=== PATIENT | female | born 1955 | race Caucasian/White ===

== ENCOUNTER 2017-07-08 21:02 | Observation (INO) | payer OTHER ==
[~2017-07-08] VITALS: Ht 162.6 cm; Wt 81.6 kg
[~2017-07-08 21:02] MED LIST: ALPRAZOLAM1 M2 PO; COLACE100 M1 PO; ELIQUIS2.5 M1 PO; HYDROCODON-ACE1 EAC3 PO; PERCOCET 5-3251 EACH PO; PREMARIN0.625 M1 PO
[2017-07-08 21:44] LABS: ABSOLUTE BASOPHIL COUNT 0 /CUMM (0.0-0.2); ABSOLUTE EOSINOPHIL COUNT 0.1 /CUMM (0.0-0.7); ABSOLUTE GRANULOCYTE CT 7.7 /CUMM (1.4-6.5); ABSOLUTE LYMPH COUNT 1.1 /CUMM (1.2-3.4); ABSOLUTE MONOCYTE COUNT 0.7 /CUMM (0.10-0.60); BASOPHIL % 0.3 % (0.0-2.0); EOSINOPHIL % 0.6 % (0-5); GRANULOCYTE % 80.2 % (42.2-75.2); HEMATOCRIT 44.1 % (37-47); MEAN CORPUSCULAR HGB 32.3 PG (27.0-31.0); MEAN CORPUSCULAR HGB CONC 33.6 G/DL (33.0-37.0); MEAN CORPUSCULAR VOLUME 96.3 FL (81.0-99.0); MEAN PLATELET VOLUME 8.6 FL (7.4-10.4); PLATELET COUNT 324 /CUMM (130-400); RBC DISTRIBUTION WIDTH 15.2 % (11.5-14.5); RED BLOOD CELL CT 4.58 /CUMM (4.20-5.40); WHITE BLOOD CELL COUNT 9.6 /CUMM (4.8-10.8)
--- NOTE | 2017-07-08 22:25 | ED GI/GU/ABDOMINAL COMPLAINT ---
See Addendum History of Present Illness General Chief Complaint: Abdominal Pain/Flank Pain Stated Complaint: "SWOLLEN ABD/CRAMPING" PER PT Source: patient, family, old records Exam Limitations: no limitations Vital Signs & Intake/Output Vital Signs & Intake/Output Vital Signs Date Time Temp Pulse Resp B/P B/P Pulse O2 O2 Flow FiO2 Mean Ox Delivery Rate 07/08 2120 97.8 65 16 156/94 96 Room Air ED Intake and Output 07/09 0000 05 1200 Intake Total 1100 Output Total Balance 1100 Intake, IV 1100 Patient 180 lb Weight Weight Reported by Patient Measurement Method Allergies Coded Allergies: No Known Allergies (12/29/16) Reconcile Medications Alprazolam 1 MG TABLET 1 TAB PO BID ANXIETY (Reported) Apixaban (Eliquis) 2.5 MG TABLET 1 TAB PO BID ANTICOAGULATION Docusate Sodium (Colace) 100 MG CAPSULE 1 CAP PO BID CONSITPATION DISCONTINUE USE IF YOU DEVELOP LOOSE STOOL OR DIARRHEA Estrogenic Subst Conj (Premarin) 0.625 MG TABLET 1 TAB PO DAILY HORMONE ( Reported) Oxycodone HCl/Acetaminophen (Percocet 5-325 MG Tablet) 5 MG-325 MG TABLET 1-2 TAB PO Q4-6H PRN PAIN Triage Note: PT WOKE THIS AM WITH GENERALIZED ABD PAIN DESCRIBED CRAMPING. NO N/V. STATES FEELS BLOATED. TRIED PEPTO BISMOL, STOOL SOFTENER AND ENEMA AT HOME, HAD SMALL BM. Triage Nurses Notes Reviewed? yes LMP (ages 10-50): post menopausal, hysterectomy ? n Is pt currently ? No Onset: Morning Duration: hour(s):, constant, continues in ED Timing: recent history Quality/Severity: aching, moderate, severe Location: generalized abdomen Radiation: no radiation Activities at Onset: rest Prior Abdominal Problems: none Past Sexual History: Unobtainable at this time Modifying Factors: Worsens With: eating. Associated Symptoms: abdominal pain, loss of appetite, nausea/vomiting HPI: 1 day prior to admission patient complains of abdominal distention anorexia nausea and generalized pain described as aching constant nonradiating. She tried Pepto-Bismol fleets enema stool softener without change in symptoms. She denies fever chills vomiting diarrhea chest pain cough shortness breath headache dysuria rash bleeding. Past History Travel History Traveled to [place] past 21 day No Medical History Any Pertinent Medical History? 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 No Review of Systems Review of Systems Constitutional: Reports: no symptoms. EENTM: Reports: no symptoms. Respiratory: Reports: no symptoms. Cardiovascular: Reports: no symptoms. GI: Reports: see HPI, abdominal pain, bloating, distention, nausea. Genitourinary: Reports: no symptoms. Musculoskeletal: Reports: no symptoms. Skin: Reports: no symptoms. Neurological/Psychological: Reports: no symptoms. Hematologic/Endocrine: Reports: no symptoms. Immunologic/Allergic: Reports: no symptoms. All Other Systems: Reviewed and Negative Physical Exam Physical Exam General Appearance: well developed/nourished, alert, awake, anxious, moderate distress, obese Head: atraumatic, normal appearance Eyes: Bilateral: normal appearance, PERRL, EOMI, normal inspection. Ears, Nose, Throat, Mouth: hearing grossly normal, moist mucous membrane Neck: normal inspection, supple, full range of motion, normal alignment Respiratory: normal breath sounds, chest non-tender, no respiratory distress, quiet respiration, lungs clear Cardiovascular: regular rate/rhythm, normal peripheral pulses, norml femoral pulses equa Peripheral Pulses: 4+ carotid (R), 4+ carotid (L) Gastrointestinal: normal bowel sounds, soft, non-tender, no organomegaly, distention Back: normal inspection, normal range of motion, no vertebral tenderness Extremities: normal range of motion, no ligament instability Neurologic/Psych: no motor/sensory deficits, awake, alert, oriented x 3, normal mood/affect, 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 No Sepsis Present: No Sepsis Focused Exam Completed? No Progress Differential Diagnosis: appendicitis, biliary colic, cholecystitis, diverticulitis, gastritis Plan of Care: Orders Procedure Date/time Status Place in observation 07/09 0025 Active CULTURE,URINE 07/08 2348 Active EKG 07/08 2328 Active BLOOD CULTURE 07/08 2317 Active URINALYSIS 07/08 2214 Active LIPASE 07/08 2122 Complete COMPREHENSIVE METABOLIC PANEL 07/08 2122 Complete CBC WITHOUT DIFFERENTIAL 07/08 2122 Complete AMYLASE 07/08 2122 Complete Laboratory Tests 07/08/172344: Urine Color Pending, Urine Clarity Pending, Urine pH Pending, Ur Specific [place] Pending, Urine Protein Pending, Urine Ketones Pending, Urine Nitrite Pending, Urine Bilirubin Pending, Urine Urobilinogen Pending, Ur Leukocyte Esterase Pending, Ur Microscopic SEDIMENT EXAMINED, Urine RBC Pending, Urine Hemoglobin Pending, Urine Glucose Pending 07/08/172128: Anion Gap 11, Estimated GFR > 60, BUN/Creatinine Ratio 11.4, Glucose 115 H, Calcium 9.5, Total Bilirubin 0.7, AST 15, ALT 14, Alkaline Phosphatase 90, Total Protein 7.5, Albumin 4.4, Globulin 3.1, Albumin/Globulin Ratio 1.4, Amylase 44, Lipase 22 L, CBC w Diff NO MAN DIFF REQ, RBC 4.58, MCV 96.3, MCH 32.3 H, MCHC 33.6, RDW 15.2 H, MPV 8.6, Gran % 80.2 H, Lymphocytes % 11.9 L, Monocytes % 7.0, Eosinophils % 0.6, Basophils % 0.3, Absolute Granulocytes 7.7 H, Absolute Lymphocytes 1.1 L, Absolute Monocytes 0.7 H, Absolute Eosinophils 0.1, Absolute Basophils 0 Microbiology 07/08 2344 URINE ROUT: Urine Culture - RECD 07/08 2334 BLOOD: Blood Culture - RECD 07/08 2314 BLOOD: Blood Culture - RECD Diagnostic Imaging: Viewed by Me: CT Scan. Discussed w/RAD: CT Scan. Radiology Impression: Abnormal appearance of the gallbladder. The gallbladder is distended with cholelithiasis. Stone seen at the gallbladder neck. Adjacent inflammation. These findings are suspicious for acute cholecystitis. Initial ED EKG: none Departure Departure Time of Disposition: 2315 Disposition: STILL A PATIENT Condition: Stable Clinical Impression Primary Impression: Cholecystitis, acute with cholelithiasis Referrals: Katherin IRAHETA,Itzel Maurice (PCP/Family) Departure Forms: Customer Survey General Discharge Information Observation Note Spoke With: Malachi IRAHETA,Luis Soriano Physician Advisor Notified: TYSON BRITT DO Place Patient In: Non-ED OBS Care Area Rationale for Observation: My rational for observation is as follows IV antibiotics IV analgesia and IV antiemetics IV fluids and by mouth surgery evaluation continuing care discharge planning..
--- NOTE | 2017-07-08 23:11 | CT SCAN REPORT ---
EXAMINATION: CT ABDOMEN AND PELVIS WITH CONTRAST CLINICAL INFORMATION: Nausea. Abdominal pain. Bloating. COMPARISON: None TECHNIQUE: Multidetector volumetric imaging was performed of the abdomen and pelvis following IV administration of 90 mL of Optiray 320 intravenous contrast. Sagittal and coronal reformatted images were obtained on the technologist's workstation. DLP: 528 mGy-cm FINDINGS: LUNG BASES: The visualized lung bases are unremarkable. LIVER, GALLBLADDER, AND BILIARY TREE: The liver is normal in size, shape, and attenuation. No focal hepatic lesion or biliary ductal dilatation is present. The gallbladder is distended. Multiple gallstones are seen within the gallbladder lumen, with a 1.3 cm calculus in the region of the gallbladder neck. Gallbladder wall thickening with pericholecystic inflammation noted. PANCREAS: Unremarkable. SPLEEN: Unremarkable. ADRENAL GLANDS: Unremarkable. KIDNEYS AND URETERS: The kidneys are normal in size, shape, and attenuation. No hydronephrosis, hydroureter, or calculi seen. No perinephric stranding. BLADDER: Unremarkable. GASTROINTESTINAL TRACT: The stomach is unremarkable. The small bowel is normal in caliber. There is no obstruction. Fecalization of the distal ileum suggests slow transit. Normal appendix. No colonic wall thickening or inflammatory change. Sigmoid diverticulosis without diverticulitis. No free air or free fluid. ABDOMINAL WALL: No significant hernia is appreciated. LYMPH NODES: Normal. VASCULAR: Normal caliber aorta with mild atherosclerotic calcifications. PELVIC VISCERA: The uterus is not seen. No adnexal mass. OSSEOUS STRUCTURES: Total right hip arthroplasty in place. Mild degenerative changes of the left hip. Mild degenerative changes in the spine. No acute or suspicious osseous abnormality. IMPRESSION: Abnormal appearance of the gallbladder. The gallbladder is distended with cholelithiasis. Stone seen at the gallbladder neck. Adjacent inflammation. These findings are suspicious for acute cholecystitis.
--- NOTE | 2017-07-09 00:53 | History & Physical Pre-Op ---
See Addendum General Information and HPI History of Present Illness: This is a 61 year-old female with a history of anxiety who presents with a sudden onset of abdominal pain that woke her from sleep at 5:00 this morning. She described the pain as constant and crampy and diffuse in nature. She thought her pain was due to constipation and took bepto bismol, colace and a fleet enema. She states she last ate a BLT last night and had a milkshake and toast this morning. She reports associated nausea and bloating. Denies vomiting, fever , chills, chest pain, shortness of breath, difficulty breathing or urinary changes. Patient reports a history of open heart surgery 52 year ago due to a hole in her heart that was corrected and has not required cardiac follow up. In the ER, she had a CT scan which revealed acute cholecystitis. Currently, she reports significant improvement in her pain with Toradol. 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 EENTM: Reports: no symptoms. Respiratory: Reports: no symptoms. Cardiovascular: Reports: no symptoms. GI: Reports: see HPI. Genitourinary: Reports: no symptoms. Musculoskeletal: Reports: no symptoms. Skin: Reports: no symptoms. Neurological/Psychological: Reports: no symptoms. Hematologic/Endocrine: Reports: no symptoms. Immunologic/Allergic: Reports: no symptoms. All Other Systems: Reviewed and Negative Exam & Diagnostic Data Last 24 Hrs of Vital Signs/I&O Vital Signs Date Time Temp Pulse Resp B/P B/P Pulse O2 O2 Flow FiO2 Mean Ox Delivery Rate 07/09 2119 97.8 65 16 156/94 96 Room Air Intake & Output 07/09 0800 07/09 0000 07/08 1600 Intake Total 1100 Output Total Balance 1100 Intake, IV 1100 Patient 180 lb Weight Weight Reported by Patient Measurement Method Physical Exam: General: Resting comfortably in bed awake an alert in nad Cardiac: S1S2 noted, well healed midline chest incision Lungs: Fair inspiratory effort, CTAB Abdomen: Soft, obese with striae noted, bs present, mild distenstion, tender to deep palpation in RUQ no rebound or guarding noted, negative murphys Extremities: no edema or calf tenderness B/L Last 24 Hrs of Labs/Simon: Laboratory Tests 07/08/172344: Urinalysis LIGHT H, Urine Color STRAW, Urine Clarity HAZY H, Urine pH 6.0, Ur Specific [place] 1.010, Urine Protein NEG, Urine Ketones NEG, Urine Nitrite NEG, Urine Bilirubin NEG, Urine Urobilinogen 0.2, Ur Leukocyte Esterase NEG, Ur Microscopic SEDIMENT EXAMINED, Urine RBC 1-3, Urine WBC RARE, Ur Epithelial Cells FEW, Urine Mucus FEW, Urine Hemoglobin SMALL H, Urine Glucose NEG 07/08/172128: Anion Gap 11, Estimated GFR > 60, BUN/Creatinine Ratio 11.4, Glucose 115 H, Calcium 9.5, Total Bilirubin 0.7, AST 15, ALT 14, Alkaline Phosphatase 90, Total Protein 7.5, Albumin 4.4, Globulin 3.1, Albumin/Globulin Ratio 1.4, Amylase 44, Lipase 22 L, CBC w Diff NO MAN DIFF REQ, RBC 4.58, MCV 96.3, MCH 32.3 H, MCHC 33.6, RDW 15.2 H, MPV 8.6, Gran % 80.2 H, Lymphocytes % 11.9 L, Monocytes % 7.0, Eosinophils % 0.6, Basophils % 0.3, Absolute Granulocytes 7.7 H, Absolute Lymphocytes 1.1 L, Absolute Monocytes 0.7 H, Absolute Eosinophils 0.1, Absolute Basophils 0 Microbiology 07/08 2344 URINE ROUT: Urine Culture - RECD 07/08 2335 BLOOD: Blood Culture - RECD 07/08 2314 BLOOD: Blood Culture - RECD Diagnostic Data Other Results SERVICE DATE: 07/08/17 EXAM TYPE: CAT - CT ABD & PELVIS W IV CONTRAST EXAMINATION: CT ABDOMEN AND PELVIS WITH CONTRAST CLINICAL INFORMATION: Nausea. Abdominal pain. Bloating. COMPARISON: None TECHNIQUE: Multidetector volumetric imaging was performed of the abdomen and pelvis following IV administration of 90 mL of Optiray 320 intravenous contrast. Sagittal and coronal reformatted images were obtained on the technologist's workstation. DLP: 528 mGy-cm FINDINGS: LUNG BASES: The visualized lung bases are unremarkable. LIVER, GALLBLADDER, AND BILIARY TREE: The liver is normal in size, shape, and attenuation. No focal hepatic lesion or biliary ductal dilatation is present. The gallbladder is distended. Multiple gallstones are seen within the gallbladder lumen, with a 1.3 cm calculus in the region of the gallbladder neck. Gallbladder wall thickening with pericholecystic inflammation noted. PANCREAS: Unremarkable. SPLEEN: Unremarkable. ADRENAL GLANDS: Unremarkable. KIDNEYS AND URETERS: The kidneys are normal in size, shape, and attenuation. No hydronephrosis, hydroureter, or calculi seen. No perinephric stranding. BLADDER: Unremarkable. GASTROINTESTINAL TRACT: The stomach is unremarkable. The small bowel is normal in caliber. There is no obstruction. Fecalization of the distal ileum suggests slow transit. Normal appendix. No colonic wall thickening or inflammatory change. Sigmoid diverticulosis without diverticulitis. No free air or free fluid. ABDOMINAL WALL: No significant hernia is appreciated. LYMPH NODES: Normal. VASCULAR: Normal caliber aorta with mild atherosclerotic calcifications. PELVIC VISCERA: The uterus is not seen. No adnexal mass. OSSEOUS STRUCTURES: Total right hip arthroplasty in place. Mild degenerative changes of the left hip. Mild degenerative changes in the spine. No acute or suspicious osseous abnormality. IMPRESSION: Abnormal appearance of the gallbladder. The gallbladder is distended with cholelithiasis. Stone seen at the gallbladder neck. Adjacent inflammation. These findings are suspicious for acute cholecystitis. Assessment/Plan Assessment/Plan: This is a 61 year-old female smoker with acute cholecystitis, cholelithiasis who requires surgical intervention Keep NPO on IVF Cont IV Unaysn 3 g q6 IV analgesics/antiemetics prn Nicotine patch prn Home meds ordered DVT ppx - hsq, alps, ambulate Proceed to OR tomorrow for lap evelio Place in observation Discussed with Dr. Ly who is in agreement As Ranked By This Provider Problem List: 1. Cholecystitis, acute with cholelithiasis
--- NOTE | 2017-07-09 00:57 | Patient Discharge Instructions ---
Discharge Instructions General Discharge Information You were seen/treated for: Acute cholecystitis, cholelithiasis You had these procedures: LAPAROSCOPIC CHOLECYSTECTOMY (07/09/17) Watch for these problems: Increased pain, fever > 101.3, chills, nausea, vomiting, redness, swelling, drainage No bath, but you may shower: Yes Other wound care: Keep incisions clean and dry, remove dressing in 2 days Special Instructions: No heavy lifting or strenous activity x 4 weeks Diet Continue normal diet: No Recommended Diet: Low Fat Activity Full Activity/No Limits: No Activity Self Limited: Yes Pounds, do NOT lift more than: 10 Acute Coronary Syndrome Inclusion Criteria At DC or during hospital stay patient has or had the following: ACS DIAGNOSIS No Discharge Core Measures Meds if any: Prescribed or Continued at Discharge Meds if any: NOT Prescribed or Continued at Discharge Congestive Heart Failure Inclusion Criteria At DC or during hospital stay patient has or had the following: CHF DIAGNOSIS No Discharge Core Measures Meds if any: Prescribed or Continued at Discharge Meds if any: NOT Prescribed or Continued at Discharge Cerebrovascular accident Inclusion Criteria At DC or during hospital stay patient has or had the following: CVA/TIA Diagnosis No Discharge Core Measures Meds if any: Prescribed or Continued at Discharge Meds if any: NOT Prescribed or Continued at Discharge Venous thromboembolism Inclusion Criteria VTE Diagnosis No VTE Type NONE VTE Confirmed by (Test) NONE Discharge Core Measures - Per Current guidelines, there needs to be overlap - treatment for the first 5 days of Warfarin therapy. - If discharged on Warfarin prior to 5 days of - overlap therapy, the patient will need to be - assessed for post discharge needs including - *Post discharge parental anticoagulation - *Warfarin and/or parental anticoagulation education - *Follow up date to check INR post discharge At least 5 days overlap therapy as Inpatient No Meds if any: Prescribed or Continued at Discharge Note: Overlap Therapy is Warfarin and Anticoagulant Meds if any: NOT Prescribed or Continued at Discharge
[2017-07-09 02:51] VITALS: BP 118/68
[2017-07-09 07:00] VITALS: BP 122/66
[2017-07-09 08:17] LABS: ABSOLUTE BASOPHIL COUNT 0 /CUMM (0.0-0.2); ABSOLUTE EOSINOPHIL COUNT 0.1 /CUMM (0.0-0.7); ABSOLUTE GRANULOCYTE CT 4.1 /CUMM (1.4-6.5); ABSOLUTE LYMPH COUNT 1.5 /CUMM (1.2-3.4); ABSOLUTE MONOCYTE COUNT 0.7 /CUMM (0.10-0.60); BASOPHIL % 0.6 % (0.0-2.0); EOSINOPHIL % 1.4 % (0-5); GRANULOCYTE % 62.8 % (42.2-75.2); MEAN CORPUSCULAR HGB 32.4 PG (27.0-31.0); MEAN CORPUSCULAR HGB CONC 33.5 G/DL (33.0-37.0); MEAN CORPUSCULAR VOLUME 96.9 FL (81.0-99.0); MEAN PLATELET VOLUME 8.9 FL (7.4-10.4); PLATELET COUNT 265 /CUMM (130-400); RBC DISTRIBUTION WIDTH 14.9 % (11.5-14.5); RED BLOOD CELL CT 3.66 /CUMM (4.20-5.40); WHITE BLOOD CELL COUNT 6.5 /CUMM (4.8-10.8)
[2017-07-09 08:27] LABS: HEMATOCRIT 35.5 % (37-47)
--- NOTE | 2017-07-09 09:37 | RADIOLOGY REPORT ---
EXAMINATION: XR PORTABLE CHEST CLINICAL INFORMATION: Preoperative for cholecystitis. COMPARISON: 11/19/2016 TECHNIQUE: Portable frontal view of the chest was obtained. FINDINGS: The lungs are well expanded. There is no focal consolidation, edema, or effusion. No pneumothorax. The cardiomediastinal silhouette is within normal limits. No acute osseous abnormality. Median sternotomy wires appear intact. IMPRESSION: No acute pulmonary findings.
[2017-07-09] MEDS ORDERED: PERCOCET 5-3251 EACH PO (09:55)
[2017-07-09] MEDS ORDERED: COLACE100 M1 PO (09:55)
[2017-07-09 12:58] VITALS: BP 122/72
--- NOTE | 2017-07-09 14:59 | Operative Report ---
Operative/Inv Procedure Report Surgery Date: 07/09/17 Name of Procedure: Laparoscopic cholecystectomy Pre-Operative Diagnosis: Acute cholecystitis Post-Operative Diagnosis: Same Estimated Blood Loss: scant Surgeon/Editing Internship: Malachi IRAHETA,Luis Soriano/Rosa Isela LUNA Anesthesia: general endotracheal tube Drains: None Specimens: Gallbladder Operative Indication: 61-year-old woman who presents with acute cholecystitis Operative/Procedure Note Note: After informed consent patient is brought to the operating room and laid supine. General anesthesia was obtained and her abdomen was prepped and draped. The skin above the umbilicus infiltrated with local anesthesia and a curvilinear incision made sharply. We came down through the subcutaneous tissues bluntly and grasped the fascia with Kiana's. A fasciotomy was created sharply and stay sutures placed. The peritoneum was entered sharply and a blunt Jones port was placed. Pneumoperitoneum was achieved. 3, 5 mm ports were placed in the epigastrium and right upper quadrant after local anesthesia was instilled and under direct vision the camera. She's placed in reverse Trendelenburg and rotated towards the left. The gallbladder is identified. It was severely edematous with watery inflammation. It was grasped at the dome and retracted towards the head. Infundibulum was then grasped. Adhesions to the undersurface were taken down with blunt and cautery dissection. We dissected both sides the triangle [place] peritoneal tissue with cautery. Again there was copious amounts of watery inflammation. The artery was medial and its normal anatomic position. It was cauterized medially to allow it to be mobilized away from the duct. [place] was cleared of areolar tissue with cautery. The arteries and duct were doubly ligated with clips. Gallbladder is removed from the fossa electrocautery. 2 separate branches of the cystic artery was identified and clipped ligated. The gallbladder was placed in Endo Catch bag and cinched up. Right upper quadrant was and suction irrigated normal saline. Hemostasis achieved with cautery. The ports were then removed and the gallbladder delivered and passed off the field. The fascia was closed with 0 Vicryl suture. Skin incisions closed with 4-0 Vicryl. Steri-Strips and sterile dressing applied. Sponge and needle counts are correct. Findings: acute watery inflammation CC: Katherin IRAHETA,Itzel Maurice
[2017-07-09 16:30] VITALS: BP 122/72
--- NOTE | 2017-07-09 18:14 | PN- General Surgery ---
Subjective Subjective: POST-OP NOTE She is surprised she is still having pain. "Feels like I did before surgery". Tolerating sips. "I feel bloated". Not nauseous. Not yet out of bed. Denies dizziness. No shortness of breath. No chest pains. Objective Vital Signs and I&Os Vital Signs Date Time Temp Pulse Resp B/P B/P Pulse O2 O2 Flow FiO2 Mean Ox Delivery Rate 07/09 1730 Room Air 07/09 1630 98.6 76 18 122/72 94 Room Air Room Air 07/09 1258 97.7 52 18 122/72 95 Room Air / 0700 98.0 64 18 122/66 94 05/ 0251 97.6 56 18 118/68 95 / 0209 97.5 63 18 154/76 96 Room Air 07/08 2120 97.8 65 16 156/94 96 Room Air Intake & Output 07/09 1600 07/09 0800 / 0000 07/08 1600 07/08 0800 07/08 0000 Intake Total 9274 804 1686 Output Total 750 Balance 827 458 9938 Intake, IV 5951 964 1761 Intake, Oral 0 Output, Urine 750 Patient 180 lb 180 lb Weight Weight Reported by Patient Measurement Method Physical Exam: General - alert & oriented x 3. comfortable. Lungs - clear. Cardiac - s1s2. reg. Abdomen - soft. dressings c/d/i. no drains. Extremities - warm bilaterally. no c/c/e. calves soft and nontender b/l. Current Medications: Current Medications Sig/Flory Start time Last Medication Dose Route Stop Time Status Admin Acetaminophen 325 MG Q4P PRN 07/09 1545 AC PO Acetaminophen 1,000 MG Q6P PRN 07/09 0030 DC N/A 1 UNIT IV Alprazolam 1 MG BID 07/09 0049 AC 07/09 PO 07/16 0048 0917 Ampicillin Sodium/ 3,000 MG Q6H 07/09 0530 r 07/09 Sulbactam Sodium IV 07/10 0000 1650 Sodium Chloride 100 ML Ampicillin Sodium/ 0 .STK-MED ONE 07/08 2351 DC Sulbactam Sodium .ROUTE Ampicillin Sodium/ 3,000 MG ONCE ONE 07/08 2330 DC 07/08 Sulbactam Sodium IV 07/08 2359 2338 Sodium Chloride 100 ML Dextrose/Sodium 1,000 ML .[id number] 07/09 0030 AC 07/09 Chloride IV 1650 Heparin Sodium 5,000 UNIT Q8 07/09 0600 AC 07/09 (Porcine) SC 0539 Ketorolac 30 MG Q6-PRN PRN 07/09 1815 UNVr Tromethamine IV Ketorolac 0 .STK-MED ONE 07/088 DC Tromethamine .ROUTE Ketorolac 30 MG ONCE ONE 07/08 2214 DC 07/08 Tromethamine IV 07/09 2215 2249 Morphine Sulfate 4 MG Q4-6 PRN PRN 07/09 1545 AC 07/09 IV 1655 Morphine Sulfate 4 MG Q4-6 PRN PRN 07/09 0030 DC IV Morphine Sulfate 6 MG Q4-6 PRN PRN 07/09 0030 DC IV Nicotine 21 MG Q24 07/09 0900 AC 07/09 TOP 0917 Ondansetron HCl 4 MG Q8P PRN 07/09 0030 AC IV Ondansetron HCl 0 .STK-MED ONE 07/09 2247 DC .ROUTE Ondansetron HCl 4 MG ONCE ONE 07/08 2214 DC 07/08 IV 07/09 2215 2249 Oxycodone/ 1 TAB Q4P PRN 07/09 1545 AC Acetaminophen PO Oxycodone/ 2 TAB Q4P PRN 07/09 1545 AC Acetaminophen PO Patient Medication 1 ED ONE ONE 07/09 1730 DC Teaching ED 07/09 1731 Prochlorperazine 25 MG Q6P PRN 07/09 0030 DC SD Sodium Chloride 1,000 ML BOLUS ONE 07/08 2214 DC 07/08 IV 07/08 2314 2249 Sodium Chloride 1,000 ML BOLUS ONE 07/08 2214 DC 07/08 IV 07/08 2314 2338 Results Last 48 Hours of Labs: Laboratory Tests 07/09 07/09 0700 0630 Chemistry Sodium (137 - 145 mmol/L) 139 Potassium (3.5 - 5.1 mmol/L) 3.9 Chloride (98 - 107 mmol/L) 109 H Carbon Dioxide (22 - 30 mmol/L) 22 Anion Gap (5 - 16) 8 BUN (7 - 17 mg/dL) 7 Creatinine (0.5 - 1.0 mg/dL) 0.6 Estimated GFR (>60 ml/min) > 60 BUN/Creatinine Ratio (7 - 25 %) 11.7 Total Bilirubin (0.2 - 1.3 mg/dL) Cancelled 0.5 Direct Bilirubin (< 0.4 mg/dL) Cancelled 0.4 AST (14 - 36 U/L) Cancelled 12 L ALT (9 - 52 U/L) Cancelled 18 Alkaline Phosphatase (<127 U/L) Cancelled 66 Total Protein (6.3 - 8.2 g/dL) Cancelled 5.6 L Albumin (3.5 - 5.0 g/dL) Cancelled 3.0 L Hematology CBC w Diff NO MAN DIFF REQ WBC (4.8 - 10.8 /CUMM) 6.5 RBC (4.20 - 5.40 /CUMM) 3.66 L Hgb (12.0 - 16.0 G/DL) 11.9 L Hct (37 - 47 %) 35.5 L MCV (81.0 - 99.0 FL) 96.9 MCH (27.0 - 31.0 PG) 32.4 H MCHC (33.0 - 37.0 G/DL) 33.5 RDW (11.5 - 14.5 %) 14.9 H Plt Count (130 - 400 /CUMM) 265 MPV (7.4 - 10.4 FL) 8.9 Gran % (42.2 - 75.2 %) 62.8 Lymphocytes % (20.5 - 51.1 %) 23.8 Monocytes % (1.7 - 9.3 %) 11.4 H Eosinophils % (0 - 5 %) 1.4 Basophils % (0.0 - 2.0 %) 0.6 Absolute Granulocytes (1.4 - 6.5 /CUMM) 4.1 Absolute Lymphocytes (1.2 - 3.4 /CUMM) 1.5 Absolute Monocytes (0.10 - 0.60 /CUMM) 0.7 H Absolute Eosinophils (0.0 - 0.7 /CUMM) 0.1 Absolute Basophils (0.0 - 0.2 /CUMM) 0 07/08 07/08 2345 2129 Chemistry Sodium (137 - 145 mmol/L) 137 Potassium (3.5 - 5.1 mmol/L) 4.1 Chloride (98 - 107 mmol/L) 102 Carbon Dioxide (22 - 30 mmol/L) 24 Anion Gap (5 - 16) 11 BUN (7 - 17 mg/dL) 8 Creatinine (0.5 - 1.0 mg/dL) 0.7 Estimated GFR (>60 ml/min) > 60 BUN/Creatinine Ratio (7 - 25 %) 11.4 Glucose (65 - 99 mg/dL) 115 H Calcium (8.4 - 10.2 mg/dL) 9.5 Total Bilirubin (0.2 - 1.3 mg/dL) 0.7 AST (14 - 36 U/L) 15 ALT (9 - 52 U/L) 14 Alkaline Phosphatase (<127 U/L) 90 Total Protein (6.3 - 8.2 g/dL) 7.5 Albumin (3.5 - 5.0 g/dL) 4.4 Globulin (1.9 - 4.2 gm/dL) 3.1 Albumin/Globulin Ratio (1.1 - 2.2 %) 1.4 Amylase (30 - 110 U/L) 44 Lipase (23 - 300 U/L) 22 L Hematology CBC w Diff NO MAN DIFF REQ WBC (4.8 - 10.8 /CUMM) 9.6 RBC (4.20 - 5.40 /CUMM) 4.58 Hgb (12.0 - 16.0 G/DL) 14.8 Hct (37 - 47 %) 44.1 MCV (81.0 - 99.0 FL) 96.3 MCH (27.0 - 31.0 PG) 32.3 H MCHC (33.0 - 37.0 G/DL) 33.6 RDW (11.5 - 14.5 %) 15.2 H Plt Count (130 - 400 /CUMM) 324 MPV (7.4 - 10.4 FL) 8.6 Gran % (42.2 - 75.2 %) 80.2 H Lymphocytes % (20.5 - 51.1 %) 11.9 L Monocytes % (1.7 - 9.3 %) 7.0 Eosinophils % (0 - 5 %) 0.6 Basophils % (0.0 - 2.0 %) 0.3 Absolute Granulocytes (1.4 - 6.5 /CUMM) 7.7 H Absolute Lymphocytes (1.2 - 3.4 /CUMM) 1.1 L Absolute Monocytes (0.10 - 0.60 /CUMM) 0.7 H Absolute Eosinophils (0.0 - 0.7 /CUMM) 0.1 Absolute Basophils (0.0 - 0.2 /CUMM) 0 Urines Urinalysis LIGHT H Urine Color (YEL,AMB,STR) STRAW Urine Clarity (CLEAR) HAZY H Urine pH (5.0 - 8.0) 6.0 Ur Specific [place] (1.001 - 1.035) 1.010 Urine Protein (NEG,<30 MG/DL) NEG Urine Ketones (NEG) NEG Urine Nitrite (NEG) NEG Urine Bilirubin (NEG) NEG Urine Urobilinogen (0.1 - 1.0 EU/dl) 0.2 Ur Leukocyte Esterase (NEG) NEG Ur Microscopic SEDIMENT EXAMINED Urine RBC (0 - 5 /HPF) 1-3 Urine WBC (0 - 2 /HPF) RARE Ur Epithelial Cells (NONE,FEW) FEW Urine Mucus (FEW,NONE) FEW Urine Hemoglobin (NEG) SMALL H Urine Glucose (N MG/DL) NEG Assessment/Plan Assessment/Plan This 61 year old female is POD#0 s/p laparoscopic cholecystectomy for acute cholecystitis advance diet as tolerated pain medication as ordered unasyn x 1 post-op oob/ambulation hep sc - dvt ppx expect she will feel some improvement by the morning observation status, given likelihood of discharge tomorrow morning will d/w Core Measures Venous Thromboembolism VTE Risk Factors Surgery No Mechanical VTE Prophylaxis d/t N/A MechProphylax Ordered No VTE Pharm Prophylaxis d/t NA PharmProphylax ordered
[2017-07-09 23:01] VITALS: BP 127/74
--- NOTE | 2017-07-10 06:06 | PN- General Surgery ---
Surgical Brief Attending Note Brief Attending Note: BETTER THIS MORNING. ADVANCE DIET AND D/C HOME.
[2017-07-10 06:23] VITALS: BP 118/60
[2017-07-10 14:05] VITALS: BP 118/58
--- NOTE | 2017-07-11 12:41 | Surg Short-stay <48hrs Dis Sum ---
Visit Information Visit Dates Admission Date: 07/09/17 Discharge Date: 07/10/17 Surgical Short Stay DC Summary Admission Diagnosis: Acute cholecystitis Final Diagnosis: same Procedure(s): laparoscopic cholecystecomy Summary/Significant Findings: Patient was brought into hospital for observation status. Surgery performed and discharged the next day. Condition at Discharge: good Discharge Disposition: home or self care Discharge instructions provided to patient/family: Yes Post discharge follow-up plan: 2 weeks Copies to: Katherin IRAHETA,Itzel Maurice
== END 2017-07-10 14:30 ==
LOC: ERH 21:02 → 2NB 07-09 00:25 → ERHI 07-09 00:25 → ENRESERV 07-09 02:04 → 2NB 07-09 02:20 → ENTRNSPT 07-09 16:18 → EDTRNSPTSTS 07-09 16:25 → EDTRNSPT 07-09 16:25 → CMPTRNSPT 07-09 16:40 → ENPENDDIS 07-10 09:17 → 2NB 07-10 14:30
PROVIDERS: Emergency Medicine; Physician Assistant Surgical
DX: K80.12 Calculus of gallbladder with acute and chronic cholecystitis without obstruction (principal); F12.90 Cannabis use, unspecified, uncomplicated; F17.200 Nicotine dependence, unspecified, uncomplicated; F41.9 Anxiety disorder, unspecified; M19.90 Unspecified osteoarthritis, unspecified site
CPT/HCPCS: 1255; 36592; 71045; 74177; 81001; 82436; 87040; 87086; 88304; 93005; 93010; 96372; 96374; 96375; 96376; G0378; J0131; J1100; J1644; J1885; J2405; J7042